=== PATIENT | female | born 1970 | race Caucasian/White ===

== ENCOUNTER → 2020-11-25 | Outpatient (CLI) | payer BC | LOC: MC.RAD 16:50 | DX: Z12.31 Encounter for screening mammogram for malignant neoplasm of breast (principal); Z98.82 Breast implant status ==

== ENCOUNTER → 2023-01-04 | Outpatient (CLI) | payer BC | LOC: CANSCHCLI → MC.RAD 16:22 | DX: Z12.31 Encounter for screening mammogram for malignant neoplasm of breast (principal) ==

== ENCOUNTER 2023-10-07 13:10 | Day surgery (SDC) | payer BC ==
[~2023-10-07] VITALS: Ht 167.6 cm; Wt 61.4 kg
[~2023-10-07 13:10] MED LIST: LR 1,000 ML IV SCH; Ondansetron 4 MG/2 ML VIAL IV PRN
[2023-10-07 14:00] VITALS: BP 124/60; PULSE 66; TEMP 97.7
[2023-10-07] MEDS ORDERED: NATURE'S BLEND160 MG PO (14:28)
[2023-10-07] MEDS ORDERED: VITAMIN D362.5 MC1 PO (14:31)
[2023-10-07] MEDS ORDERED: Lidocaine PF 2% (20 MG/ML) 5 ML VIAL ONE (14:31)
[2023-10-07] MEDS ORDERED: IRON TABLETS325 MG PO (14:32)
[2023-10-07] MEDS ORDERED: OMEGA-31 SGL PO (14:33)
[2023-10-07] MEDS ORDERED: MAGNESIUM OXID500 MG PO (14:34)
[2023-10-07] MEDS ORDERED: VITAMINC500CH PO (14:35)
[2023-10-07] MEDS ORDERED: CENTRUM1 TA1 PO (14:35)
[2023-10-07] MEDS ORDERED: PHARMASSURE ZIN50 MG PO (14:36)
[2023-10-07 15:05] VITALS: BP 104/59; PULSE 66; TEMP 97.5
[2023-10-07 15:20] VITALS: BP 101/75; PULSE 56
--- NOTE | 2023-10-07 17:56 | NUR ---
1505:PT TO [facility] FROM ENDO SUITE. AMBULATED FROM CART TO RECLINER X2 ASSIST. REPORT RECEIVED FROM ENDO NURSE. PT ALERT AND ORIENTED. DENIES PAIN OR NAUSEA. REQUESTING WATER AND CRACKERS. RESTING IN RECLINER. CALL LIGHT IN REACH. , ANTON, AT BEDSIDE. 1520: PT ALERT AND ORIENTED. TOLERATING WATER AND CRACKERS. DENIES PAIN AND NAUSEA. RESTING IN RECLINER. DR. JAIME IN TO SPEAK WITH PT. DISCHARGE EDUCATION DONE AT THIS TIME. PT STATED UNDERSTANDING OF DC INSTRUCTIONS. DC PAPERWORK GIVEN TO PT. IV DC'D AT THIS TIME. PT DENIES ASSISTANCE WITH DRESSING. 1530: PT AMBULATED INDEPENDENTLY FROM RECLINER TO WHEELCHAIR. PT OFF UNIT AT THIS TIME. PT DC TO HOME WITH PER PERSONAL VEHICLE.
== END 2023-10-07 15:30 | disposition home or self-care (01) ==
LOC: SDCO 13:10
DX: Z12.11 Encounter for screening for malignant neoplasm of colon (principal); K57.30 Diverticulosis of large intestine without perforation or abscess without bleeding
CPT/HCPCS: J2704

== ENCOUNTER → 2024-01-09 | Outpatient (CLI) | payer BC ==
[~2024-01-09] MED LIST changes: +CENTRUM1 TA1 PO; +IRON TABLETS325 MG PO; -LR 1,000 ML IV SCH; +MAGNESIUM OXID500 MG PO; +NATURE'S BLEND160 MG PO; +OMEGA-31 SGL PO; -Ondansetron 4 MG/2 ML VIAL IV PRN; +PHARMASSURE ZIN50 MG PO; +VITAMIN D362.5 MC1 PO; +VITAMINC500CH PO
== END ==
LOC: MC.RAD 14:55
DX: Z12.31 Encounter for screening mammogram for malignant neoplasm of breast (principal); Z12.4 Encounter for screening for malignant neoplasm of cervix